=== PATIENT | female | born 1990 | race Caucasian/White ===

== ENCOUNTER 2017-02-18 10:28 | Inpatient (IN) | payer OTHER ==
[~2017-02-18] VITALS: Ht 170.2 cm; Wt 164.2 kg
[~2017-02-18 10:28] MED LIST: DELTASONE20 MG PO; GUAIFENESIN-COD10 ML PO; PROAIR HFA8.5 GM INH; ZOFRAN4 M2 PO
--- NOTE | 2017-02-18 10:39 | NUR ---
26 YEAR OLD FEMALE SENT TO ER BY HER PSYCHIATRIST DUE TO POSITIVE SI THOUGHTS. DENIES A PLAN AT THIS TIME AND STATES THAT SHE HAS A YOUNG SON AND COULD NEVER KILL HERSELF. ALSO COMPLAINS OF HALLUCINATIONS,STATES THAT SHE SEES THINGS BUT THAT SHE CAN'T EXPLAIN WHAT SHE IS SEEING. DENIES ETOH/DRUGS.
--- NOTE | 2017-02-18 10:42 | ED PSYCHIATRIC COMPLAINT ---
History of Present Illness General Chief Complaint: Psychiatric Related Complaint Stated Complaint: SENT BY PSYCHIATRIST FOR EVAL +SI,HALLUCINATIONS Source: patient Exam Limitations: no limitations Vital Signs & Intake/Output Vital Signs & Intake/Output Vital Signs Date Time Temp Pulse Resp B/P B/P Pulse O2 O2 Flow FiO2 Mean Ox Delivery Rate 02/19 0800 98.3 74 147/92 02/18 2244 97.1 84 18 130/78 96 Room Air 02/18 2111 97.5 84 18 128/72 97 Room Air 02/18 1815 98.6 83 18 138/78 97 Room Air 02/18 1437 96.7 86 18 103/54 96 Room Air 02/18 1154 98 Room Air ED Intake and Output 02/19 0000 02/18 1200 Intake Total Output Total Balance Patient 362 lb 362 lb Weight Allergies Coded Allergies: oxycodone (Intermediate, VOMITING 02/18/17) Triage Note: 26 YEAR OLD FEMALE SENT TO ER BY HER PSYCHIATRIST DUE TO POSITIVE SI THOUGHTS. DENIES A PLAN AT THIS TIME AND STATES THAT SHE HAS A YOUNG SON AND COULD NEVER KILL HERSELF. ALSO COMPLAINS OF HALLUCINATIONS,STATES THAT SHE SEES THINGS BUT THAT SHE CAN'T EXPLAIN WHAT SHE IS SEEING. DENIES ETOH/DRUGS. Triage Nurses Notes Reviewed? yes Onset: Gradual Duration: worse persistent since (2 weeks) Timing: recent history Severity: moderate : No Patient currently breastfeeds: No HPI: Patient is a 26-year-old female presenting to the emergency department with history of anxiety, depression and bipolar with chief complaint of suicidal ideation, worsening depression over the past 2 weeks. She reports that she is having auditory and visual hallucinations. She reports that the auditory hallucinations are people just telling her comments, she is unsure exactly what they're saying. She saying the visual hallucinations or just seeing people in different way. She reports that she is currently suicidal, no specific plan. She saw her therapist this morning and they recommended she come to the ER for evaluation due to suicidal ideation. Denies any drug use or alcohol use. Nothing seems to make her symptoms that are worse. She reports decreased by mouth intake. Denies any homicidal ideation. (DHRUV LUTZ,JODEE) Reconcile Medications Carbamazepine (Tegretol) 200 MG TABLET 1.5 TAB PO BID MENTAL HEALTH (Reported ) (LAURA DAVIS,RYAN) Past History Travel History Traveled to [place] past 21 day No Medical History Any Pertinent Medical History? see below for history Respiratory: asthma, CHRONIC BRONCHITIS Psychiatric: anxiety, bipolar disease, depression Endocrine: hyperthyroidism, PREDIABETES Surgical History Surgical History: non-contributory Psychosocial History What is your primary language Icelandic Tobacco Use: Current Daily Use Daily Tobacco Use Amount/Type: => 5 Cigarettes daily ETOH Use: denies use Illicit Drug Use: denies illicit drug use Family History Hx Contributory? No (JODEE ANDERS) Review of Systems Review of Systems Constitutional: Reports: no symptoms. Comments Review of systems: See HPI, All other systems negative. Constitutional, no chills fever or weight loss HEENT: No visual changes no sore throat no congestion Cardiovascular: No chest pain ,palpitation Skin, no jaundice no rashes Respiratory: No dyspnea cough sputum or hemoptysis GI: No nausea no vomiting : No dysuria No hematuria Muscle skeletal: no back pain, no neck pain, Neurologic: No numbness no confusion Psych: Positive STRESS positive anxiety, positive depression Heme/endocrine: No bruising no bleeding no polyuria or polydipsia Immunology: No splenectomy or history of AIDS (JODEE ANDERS) Physical Exam Physical Exam General Appearance: well developed/nourished, no apparent distress, alert, awake , TEARFUL Neurological/Psychiatric: oriented x 3 Comments: Well-developed well-nourished person in no acute distress HEENT: Pupils equally round and reactive to light and accommodation. Nose is atraumatic. Neck: Normal inspection Back: Nontender, Cardiovascular: Regular rate and rhythms no murmurs rubs or gallops, normal JVP Respiratory: Chest nontender. No respiratory distress.breath sounds clear to auscultation bilaterally Extremity: No edema Neuro: Alert oriented x3 Skin: No appreciable rash on exposed skin, skin is warm and dry. Psych: Mood depressed affect, tearful, memory and judgment is normal. SAD PERSONS SAD PERSONS Response Value Depression/Hopelessness? yes 2 Previous Attempts/Psych Care yes 1 Rational Thinking Loss? yes 2 Social Support? has support 0 Stated Future Intent? yes 2 Total 7 SAD PERSONS Done? yes (JODEE ANDERS) Progress Differential Diagnosis: MAJOR DEPRESSIVE DISORDER, MOOD DISORDER NOS, GENERALIZED ANXIETY DISORDER, POLYSUBSTANCE ABUSE. Plan of Care: Orders Procedure Date/time Status Regular Diet 02/19 B Active Vital Signs 02/19 2324 Active Inpt Psych Teach/Educate 02/19 2324 Active Nutritional Intake, Monitor 02/19 2324 Active Inpt Psych Auricular Acupunctu 02/19 2324 Active Admit to inpatient psych 02/18 1735 Active Add-on Test (ER Only) 02/18 1713 Active TEGRETOL LEVEL 02/18 1240 Complete Intake & Output 02/18 1154 Complete Current Medications Sig/Jerri Start time Last Medication Dose Stop Time Status Admin Escitalopram Oxalate 10 MG 0802/23 0800 UNVr (Lexapro) Melatonin 3 MG AT BEDTIME PRN 02/19 1145 UNVr (Melatonin) Escitalopram Oxalate 5 MG DAILY 02/19 1142 UNVr (Lexapro) 02/21 1001 Laboratory Tests 02/18/17 1240: Anion Gap 10, Estimated GFR > 60, BUN/Creatinine Ratio 14.3, Glucose 106 H, Calcium 8.3 L, Total Bilirubin 0.4, AST 18, ALT 33, Alkaline Phosphatase 62, Total Protein 6.8, Albumin 3.7, Globulin 3.1, Albumin/Globulin Ratio 1.2, TSH & T3 &Free T4 Intrp 1.990, RBC 5.06, MCV 83.8, MCH 28.4, RDW 13.9, MPV 8.6, Gran % 71.5, Lymphocytes % 20.1 L, Monocytes % 2.5, Eosinophils % 5.5 H, Basophils % 0.4, Absolute Granulocytes 5.7, Absolute Lymphocytes 1.6, Absolute Monocytes 0.2 , Absolute Eosinophils 0.4, Absolute Basophils 0, PUBS MCHC 33.9, Carbamazepine 6.6, Serum Alcohol < 10.0 Comments: PT WILL BE ADMITTED TO [facility]. (JODEE ANDERS) Departure Departure Time of Disposition: 1712 Disposition: STILL A PATIENT Condition: Stable Clinical Impression Primary Impression: Mood disorder Secondary Impressions: Major depressive disorder Qualifiers: Major depression recurrence: recurrent Active/Remission status: currently active Major depression episode severity: severe Psychotic features: with psychotic features Qualified Code: F33.3 - Major depressive disorder, recurrent, severe with psychotic symptoms Referrals: AGAPITO MADDOX DO (PCP/Family) Departure Forms: Customer Survey General Discharge Information Psych Admission Note Psychiatric Admission: I have seen and evaluated ERVIN BURT. I have also reviewed all the pertinent lab results and diagnostic results. ERVIN BURT will be admitted to our inpatient Psychiatric unit for treatment and care. Patient requiring admission for psychiatric evaluation and treatment. (DHRUV LUTZ,JODEE) PA/GREY GOODS MARKER Co-Sign Statement Statement: ED Attending supervision documentation- [] I saw and evaluated the patient. I have also reviewed all the pertinent lab results and diagnostic results. I agree with the findings and the plan of care as documented in the PA's/GREY GOODS MARKER's documentation. [X] I have reviewed the ED Record and agree with the PA's/GREY GOODS MARKER's documentation. [] Additions or exceptions (if any) to the PAs/GREY GOODS MARKER's note and plan are summarized below: [] (LAURA DAVIS,RYAN)
--- NOTE | 2017-02-18 10:50 | NUR ---
BOLIVAR ZAVALA AT THE BEDSIDE
--- NOTE | 2017-02-18 11:07 | NUR ---
Patient has one belongings bag locked in [facility] and her has taken home her valuables.
[2017-02-18] MEDS ORDERED: CLONAZEPAM0.5 M2 PO (11:11)
[2017-02-18] MEDS ORDERED: TEGRETOL200 M1 PO (11:11)
--- NOTE | 2017-02-18 11:53 | NUR ---
PT REMAINS CALM AND COOPERATIVE. BLOOD DRAW IN PROGRESS
--- NOTE | 2017-02-18 11:56 | NUR ---
LABS DRAWN AND SENT BY THIS MST, SST,LAV, PT A DIFFICULT STICK.
--- NOTE | 2017-02-18 12:11 | NUR ---
CBC CLOTTED PER LAB, NEED REDRAW.
--- NOTE | 2017-02-18 12:43 | NUR ---
THEATRICAL PERFORMER ANUPAM OVER TO RE DRAW BLOOD
[2017-02-18 12:47] LABS: ABSOLUTE BASOPHIL COUNT 0 /CUMM (0.0-0.2); ABSOLUTE EOSINOPHIL COUNT 0.4 /CUMM (0.0-0.7); ABSOLUTE GRANULOCYTE CT 5.7 /CUMM (1.4-6.5); ABSOLUTE LYMPH COUNT 1.6 /CUMM (1.2-3.4); ABSOLUTE MONOCYTE COUNT 0.2 /CUMM (0.10-0.60); BASOPHIL % 0.4 % (0.0-2.0); EOSINOPHIL % 5.5 % (0-5); GRANULOCYTE % 71.5 % (42.2-75.2); HEMATOCRIT 42.4 % (37-47); MEAN CORPUSCULAR HGB 28.4 PG (27.0-31.0); MEAN CORPUSCULAR HGB CONC 33.9 G/DL (33.0-37.0); MEAN CORPUSCULAR VOLUME 83.8 FL (81.0-99.0); MEAN PLATELET VOLUME 8.6 FL (7.4-10.4); PLATELET COUNT 239 /CUMM (130-400); RBC DISTRIBUTION WIDTH 13.9 % (11.5-14.5); RED BLOOD CELL CT 5.06 /CUMM (4.20-5.40)
--- NOTE | 2017-02-18 13:25 | NUR ---
PT RESTING IN HALLWAY STRETCHER WITH NO ADDITIONAL COMPLAINTS AT THIS TIME AWAITING ALL RESULTS AND THEN CRISIS EVAL
--- NOTE | 2017-02-18 14:07 | NUR ---
MOVED INTO ROOM 13. REMAINS PLEASANT AND COOPERATIVE WITH NO COMPLAINTS VOICED
--- NOTE | 2017-02-18 15:17 | NUR ---
REPORT GIVEN TO GUILLE PATEL
--- NOTE | 2017-02-18 15:49 | NUR ---
ASSUMED CARE AT THIS TIME , PT ALERT AND ORIENTED SITTING UP ON BED EATING HER DINNER. CRISIS AT BEDSIDE
--- NOTE | 2017-02-18 17:12 | ED PSYCH CRISIS CONSULTATION ---
Crisis Consult Basic Assessment Date of Consult: 02/18/17 Responsible Person/Accompanied By: Spouse, Kali Insurance Authorization: Insurance #1: Insurance name: [employer] C&A Phone number: Policy number: [id number] Group number: Authorization number: ED Provider: Patient's ED Provider: JODEE ANDERS Primary Care Physician: Patient's PCP: AGAPITO MADDOX DO PCP's Current Psychiatrist: Angélica Flor MD Chief Complaint: Psychiatric Related Complaint Patient's Quote: "I had a fight with my , I thought he was laughing at mg " Present Illness: 26 F presented to her psychiatrist, Dr. Angélica Flor, , today who after evaluation, found her to have stronger suicidal ideation and auditory hallucinations, and sent her to the ED. She was accompanied by her spouse, Kali, who decided to drive her to the ED, despite not having a entry level truck driver's license. She had had a fight with her spouse this morning, believing that he was laughing at her, when he was not. She reports she has had escalating suicidal ideation, without plan, in the last year. She reports that "it is more seeking relief than killing." She reports non -command AH, usually believing the person near her is talking or laughing about her. She reports VH sometimes, usually either seeing shadows, or "seeing people as someone else." Diagnosed with bipolar depression and anxiety, per her report, at age 14. Dr. Flor reports: Mood D/O NOS PTSD R/O borderline P.D. She has been treating the patient for several years, and reports that many medications have been tried, some with previous treaters, with the patient, all losing efficacy after a while, including Geodon, Abilify, Latuda, Zyprexa, Invega, risperidone, Cymbalta, Lamictal. The MD reports that the patient cannot tolerate SSRI, reason unclear, and the patient does not recognize any SSRI names. The patient reports that she had to stop one med after one day, after she developed very strong suicidal thoughts. She has never been on lithium. Current psychotropic medications, per med claim, and confirmed with the patient: Carbamazapine 300 mg PO 2X/day Clonazepam 0.5 mg #30 for 30 days filled 02/05/17, Dr. Flor, per CT SOLUTION COORDINATOR Aware report Previous history includes diagnosis of bipolar and anxiety, treated by Dr. Diana for many years, before he moved. She denies psychiatric hospitalization. She denies any suicide attempts. She denies any history of seizure. MSE: Alert and oriented. Calm, cooperative but tearful. She denies current suicidal ideation, but reports she had these feelings without plan earlier today , and reports they have been getting worse in the last year. Later, she changed this to state the these +SI feelings and hallucinations began when Dr. Flor increased the dosing of her carbamazapine to the current level. She denies current auditory or visual hallucinations, but had auditory hallucinations earlier today, as noted above. Visual hallucinations occur sometimes, and are described above. She endorses hopelessness and helplessness, but not worthlessness. She denies homicidal ideation, but reports that sometimes, she wants to punch people who are near her, even complete strangers. She cannot recall the last manic episode, but reports impulsive spending and Lotto gambling, even reaching the spending limit on her 's credit cards. He works only part-time, and this caused severe financial burden. She feels that she is not in her body when she feels stressed. Less frequently, she reports random derealization. Sleep is sometimes good, but then describes 5-6 hours and does not feel refreshed in the morning. she does not use sleep aids. She denies street drug use, and reports rare alcohol use. She does smoke 1/2 to 1 pack of cigarettes daily. For trauma history, please see PSHx below. PSHx: The patient lives at home with her 6 y.o. son, Jr. Kali and her spouse, Kali. She reports that her daughter in 2008 in the womb, and she carried the stillborn infant for 7 months. At the time of this , she had started [facility] IOP, but left on the first day, when she was told they wished to restart her medications, "I don't like pushy people." Her mother one week after her son was born. She works at [employer] part-time, and states that her hours have been cut back, because she has anxiety there and has had to leave work on numerous occasions. Her best friend in her sleep on . PFHx: Mother - anxiety, depression, alcohol abuse, and aunt abused benzodiazepines. Father - Bipolar, with schizophrenia, anxiety and depression in other members on that side. Patient's Address: [address] [place] [address] [address] [place] [address] Other Phone Number: Who Do You Live With? Family Family/Informants Interviewed: Spouse, Kali, interviewed, who seems ambivalent about his discharging to home vs. admission to inpatient psychiatry. Questionable judgement; he drove the patient to the ED, but is not licensed. Dr. Flor, psychiatrist: She has never seen the patient this suicidal, and feels stongly that she needs inpatient psych admission. Allergies - Coded Allergies: oxycodone (Intermediate, VOMITING 02/18/17) Current Medications - Scheduled Medications Carbamazepine (Tegretol) 200 MG TABLET 1.5 TAB PO BID MENTAL HEALTH #90 ( Reported) Entered as Reported by CHAIM EATON on 02/18/17 1111 Scheduled PRN Medications Clonazepam 0.5 MG TABLET 1 TAB PO BIDP PRN ANXIETY #30 (Reported) Entered as Reported by CHAIM EATON on 02/18/17 1111 Laboratory Results: Laboratory Tests 02/18/17 1240: Anion Gap 10, Estimated GFR > 60, BUN/Creatinine Ratio 14.3, Glucose 106 H, Calcium 8.3 L, Total Bilirubin 0.4, AST 18, ALT 33, Alkaline Phosphatase 62, Total Protein 6.8, Albumin 3.7, Globulin 3.1, Albumin/Globulin Ratio 1.2, TSH & T3 &Free T4 Intrp 1.990, RBC 5.06, MCV 83.8, MCH 28.4, RDW 13.9, MPV 8.6, Gran % 71.5, Lymphocytes % 20.1 L, Monocytes % 2.5, Eosinophils % 5.5 H, Basophils % 0.4, Absolute Granulocytes 5.7, Absolute Lymphocytes 1.6, Absolute Monocytes 0.2 , Absolute Eosinophils 0.4, Absolute Basophils 0, PUBS MCHC 33.9, Carbamazepine 6.6, Serum Alcohol < 10.0 02/18/17 1125: Urine Opiates Screen < 100.00, Methadone Screen < 40, Barbiturate Screen < 60, Ur Phencyclidine Scrn < 6.00, Amphetamines Screen < 100, U Benzodiazepines Scrn < 85, Urine Cocaine Screen < 50, Urine Cannabis Screen < 5.00, Urine Color STRAW , Urine Clarity CLEAR, Urine pH 7.0, Ur Specific Kerman 1.010, Urine Protein NEG, Urine Ketones NEG, Urine Nitrite NEG, Urine Bilirubin NEG, Urine Urobilinogen 0.2, Ur Leukocyte Esterase NEG, Ur Microscopic EXAM NOT REQUIRED, Urine Hemoglobin NEG, Urine Glucose NEG, Urine Test NEGATIVE Past History Past Medical History Respiratory: asthma, CHRONIC BRONCHITIS Psychiatric: anxiety, bipolar disease, depression Endocrine: hyperthyroidism, PREDIABETES Past Surgical History Surgical History: non-contributory Psychosocial History Strengths/Capabilities: Motivated for treatment, goal-oriented. Physical Limitations (Interventions): None Psychiatric Treatment History Psych Treatment Psychiatric Treatment Yes Inpatient Treatment No Outpatient Treatment Yes Location of Treatment Dr. Diana, and now Dr. Flor. Also, [facility] for one visi Reason for Treatment Patient report: Bipolar, anxiety. Dr. Flor: PTSD, borderline P.D., ?mood disorder. Dates of Treatment Currently in outpatient with . Treated since 14 y.o. 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 Substance Use/Abuse History Drug Use/Abuse Substances Used/Abused No (Denies) Substance Abuse Treatment Substance Abuse Treatment Past Substance Abuse [place] No (Denies) Inpatient Treatment No Outpatient Treatment No Current Mental Status Mental Status Orientation: Person, Place, Situation Affect: Flat, Sad Speech: WNL Neuro-vegetative: Anhedonia, Helpless, Sleep Disturbance Appearance Appearance- Dress/Hygiene: Hospital garb Behaviors Thought Process: Loose Association Thought Content: Confabulations, Delusions Memory: WNL (Denies, but inconsistencies) Insight: Poor SI/HI Risk Assessment Past Suicidal Ideation/Attempts Yes Current Suicidal Ideation/Att No Past Homicidal Ideation/Att: No Current Homicidal Ideation/Attempts No Degree of Intent: Recent thoughts, no plan Danger To: Self Gravely Disabled: Lack of Insight, Poor Judgment Risk Factors: high anxiety/distress Lethality Ratin PTSD Checklist PTSD Score: PTSD Score: Response Value Disturbing memories,thoughts,images of stressful experience? A little bit 2 Disturbing dreams of stressful experience from past? Not at all 1 Suddenly acting/feeling as if reliving stressful experience? Not at all 1 Unpleasant feeling when reminded of stressful experience? A little bit 2 Physical reactions when reminded of stressful experience? Not at all 1 Avoid thinking/talking of stressful exp. to avoid reactions? Not at all 1 Avoid activities/situations that remind of stressful exp.? Not at all 1 Trouble remembering important parts of stressful experience? Not at all 1 Loss of interest in things that you used to enjoy? A little bit 2 Feeling distant or cut off from other people? A little bit 2 Feeling emotionally numb/unable to love those close to you? A little bit 2 Feeling as if your future will somehow be cut short? Not at all 1 Trouble falling or staying asleep? A little bit 2 Feeling irritable or having angry outbursts? Moderately 3 Having difficulty concentrating? Not at all 1 Being super alert or watchful on guard? A little bit 2 Feeling jumpy or easily startled? Not at all 1 Total 26 ED Management Sitter: Yes Restraints: No DSM5/PS Stressors/Medical Prob Diagnosis' (DSM 5, Stressors, Medical): 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 Current GAF: 21 Departure Disposition Psych Medical Clearance Date: 02/18/17 Medically Cleared at: 1545 Time Started: 1545 Time Ended: 1615 Psychiatrist Consulted: Antwan Ferrer MD Date Disposition Established: 02/18/17 Time Disposition Established: 1630 Plan for Disposition - Modality: Inpatient Psychiatry Facility: [facility] Rationale for Disposition: Worsening suicidal ideation and auditory hallucinations Type of IP Admission: Voluntary Referrals AGAPITO MADDOX DO (PCP/Family)
--- NOTE | 2017-02-18 17:23 | NUR ---
PT REMAINS ALERT AND ORIENTED , PER CRISIS PT TO BE ADMITTED TO [facility]
--- NOTE | 2017-02-18 18:50 | NUR ---
PT REMAINS CALM AND COPERATIVE , RESTING ON BED WITH LIGHTS DIMMED, PT AWARE THAT SHE IS TO BE ADMITTED TO [facility]
--- NOTE | 2017-02-18 18:51 | IP CRISIS DIAG ASSESS PSYCH ---
Diagnostic Assessment Basic Assessment Insurance Authorization: Insurance #1: Insurance name: [employer]A Phone number: Policy number: [id number] Group number: Authorization number: [id number]; [id number] Primary Care Physician: Patient's PCP: AGAPITO MADDOX DO PCP's Patient's Quote: "I had a fight with my , I thought he was laughing at mg " Present Illness: 26 F presented to her psychiatrist, Dr. Angélica Flor, , today who after evaluation, found her to have stronger suicidal ideation and auditory hallucinations, and sent her to the ED. 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 She had had a fight with her spouse this morning, believing that he was laughing at her, when he was not. She reports she has had escalating suicidal ideation, without plan, in the last year. She reports that "it is more seeking relief than killing." She reports non -command AH, usually believing the person near her is talking or laughing about her. She reports VH sometimes, usually either seeing shadows, or "seeing people as someone else." Diagnosed with bipolar depression and anxiety, per her report, at age 14. Dr. Flor reports: Mood D/O NOS PTSD R/O borderline P.D. She has been treating the patient for several years, and reports that many medications have been tried, some with previous treaters, with the patient, all losing efficacy after a while, including Geodon, Abilify, Latuda, Zyprexa, Invega, risperidone, Cymbalta, Lamictal. The MD reports that the patient cannot tolerate SSRI, reason unclear, and the patient does not recognize any SSRI names. The patient reports that she had to stop one med after one day, after she developed very strong suicidal thoughts. She has never been on lithium. Current psychotropic medications, per med claim, and confirmed with the patient: Carbamazapine 300 mg PO 2X/day Clonazepam 0.5 mg #30 for 30 days filled 02/05/17, Dr. Flor, per [facility] report Previous history includes diagnosis of bipolar and anxiety, treated by Dr. Diana for many years, before he moved. She denies psychiatric hospitalization. She denies any suicide attempts. She denies any history of seizure. MSE: Alert and oriented. Calm, cooperative but tearful. She denies current suicidal ideation, but reports she had these feelings without plan earlier today , and reports they have been getting worse in the last year. Later, she changed this to state the these +SI feelings and hallucinations began when Dr. Flor increased the dosing of her carbamazapine to the current level. She denies current auditory or visual hallucinations, but had auditory hallucinations earlier today, as noted above. Visual hallucinations occur sometimes, and are described above. She endorses hopelessness and helplessness, but not worthlessness. She denies homicidal ideation, but reports that sometimes, she wants to punch people who are near her, even complete strangers. She cannot recall the last manic episode, but reports impulsive spending and Lotto gambling, even reaching the spending limit on her 's credit cards. He works only part-time, and this caused severe financial burden. She feels that she is not in her body when she feels stressed. Less frequently, she reports random derealization. Sleep is sometimes good, but then describes 5-6 hours and does not feel refreshed in the morning. she does not use sleep aids. She denies street drug use, and reports rare alcohol use. She does smoke 1/2 to 1 pack of cigarettes daily. For trauma history, please see PSHx below. PSHx: The patient lives at home with her 6 y.o. son, Jr. Kali and her spouse, Kali. She reports that her daughter in 2008 in the womb, and she carried the stillborn for 7 months. At the time of this , she had started [facility] IOP, but left on the first day, when she was told they wished to restart her medications, "I don't like pushy people." Her mother one week after her son was born. She works at [employer] part-time, and states that her hours have been cut back, because she has anxiety there and has had to leave work on numerous occasions. Her best friend in her sleep on . PFHx: Mother - anxiety, depression, alcohol abuse, and aunt abused benzodiazepines. Father - Bipolar, with schizophrenia, anxiety and depression in other members on that side. Patient's Address: [address] [place] [address] [address] [place] [address] Other Phone Number: Who Do You Live With? Family (Spouse and 6 y.o. son) Feel Safe Where You Live? Yes Feel Safe in Your Relationship Yes Marital Status: Do You Have Children? Yes Ages? 6 Primary Language? Swedish Family/Informants Interviewed: Spouse, Kali, interviewed, who seems ambivalent about his discharging to home vs. admission to inpatient psychiatry. Questionable judgement; he drove the patient to the ED, but is not licensed. Dr. Flor, psychiatrist: She has never seen the patient this suicidal, and feels stongly that she needs inpatient psych admission. Allergies - Coded Allergies: oxycodone (Intermediate, VOMITING 02/18/17) Current Medications - Scheduled Medications Carbamazepine (Tegretol) 200 MG TABLET 1.5 TAB PO BID MENTAL HEALTH #90 ( Reported) Entered as Reported by CHAIM EATON on 02/18/17 1111 Scheduled PRN Medications Clonazepam 0.5 MG TABLET 1 TAB PO BIDP PRN ANXIETY #30 (Reported) Entered as Reported by CHAIM EATON on 02/18/17 1111 Consequences of Psych Med Use: Patient reports that SI and AH worsened when carbamazepine dose increased, but gave a possibly conflicting story earlier, when she stated that SI became worse about one year ago. Lab Results: Laboratory Tests 02/18/17 1240: Anion Gap 10, Estimated GFR > 60, BUN/Creatinine Ratio 14.3, Glucose 106 H, Calcium 8.3 L, Total Bilirubin 0.4, AST 18, ALT 33, Alkaline Phosphatase 62, Total Protein 6.8, Albumin 3.7, Globulin 3.1, Albumin/Globulin Ratio 1.2, TSH & T3 &Free T4 Intrp 1.990, RBC 5.06, MCV 83.8, MCH 28.4, RDW 13.9, MPV 8.6, Gran % 71.5, Lymphocytes % 20.1 L, Monocytes % 2.5, Eosinophils % 5.5 H, Basophils % 0.4, Absolute Granulocytes 5.7, Absolute Lymphocytes 1.6, Absolute Monocytes 0.2 , Absolute Eosinophils 0.4, Absolute Basophils 0, PUBS MCHC 33.9, Carbamazepine 6.6, Serum Alcohol < 10.0 02/18/17 1125: Urine Opiates Screen < 100.00, Methadone Screen < 40, Barbiturate Screen < 60, Ur Phencyclidine Scrn < 6.00, Amphetamines Screen < 100, U Benzodiazepines Scrn < 85, Urine Cocaine Screen < 50, Urine Cannabis Screen < 5.00, Urine Color STRAW , Urine Clarity CLEAR, Urine pH 7.0, Ur Specific [place] 1.010, Urine Protein NEG, Urine Ketones NEG, Urine Nitrite NEG, Urine Bilirubin NEG, Urine Urobilinogen 0.2, Ur Leukocyte Esterase NEG, Ur Microscopic EXAM NOT REQUIRED, Urine Hemoglobin NEG, Urine Glucose NEG, Urine Test NEGATIVE Toxicology Screen Completed? Yes Results: negative Past History Past Medical History Medical History: Asthma, Psychiatric history, Hyperthyroidism, Chronic bronchitis, pre-diabetes Past Surgical History Surgical History non-contributory Abuse/Trauma History Trauma History/Current Trauma: Loss of child in womb, of mother and best friend. PTSD screen 26 today. Victim or Perpretator? victim Patient's Age at Time of Trauma: 18 History of Trauma/Abuse Treatment? Yes Abuse/Trauma Treatment: Not evaluated Legal History Current Legal Status: none Have you ever been arrested? No Psychosocial History Strengths/Capabilities: Motivated for treatment, goal-oriented. Physical Limitations (Interventions): None Psychiatric Treatment History Psych Treatment Psychiatric Treatment Yes Inpatient Treatment No Outpatient Treatment Yes Location of Treatment Dr. Diana, and now Dr. Flor. Also, [facility] for one visi Reason for Treatment Patient report: Bipolar, anxiety. Dr. Flor: PTSD, borderline P.D., ?mood disorder. Dates of Treatment Currently in outpatient with . Treated since 14 y.o. 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 Risk Factors: high anxiety/distress Substance Use/Abuse History Drug Use/Abuse minimum 12mo Hx Substances Used/Abused No (Denies) Substance Abuse Treatment Substance Abuse Treatment Past Substance Abuse [place] No (Denies) Inpatient Treatment No Outpatient Treatment No Education History Highest Level of Education: high school/GED Preferred Learning Style: experiential Current Mental Status Mental Status Orientation: Person, Place, Situation Affect: Flat, Sad Speech: WNL Neuro-vegetative: Anhedonia, Helpless, Sleep Disturbance Appearance Appearance- Dress/Hygiene: Hospital garb Behaviors Thought Process: Loose Association Thought Content: Confabulations, Delusions Memory: WNL (Denies, but inconsistencies) Insight: Poor SI/HI Risk Assessment - Minimum 6mo History- Past Suicidal Ideation/Attempts Yes Current Suicidal Ideation/Att No Past Homicidal Ideation/Att: No Current Homicidal Ideation/Attempts No Degree of Intent: Recent thoughts, no plan Danger To: Self Gravely Disabled: Lack of Insight, Poor Judgment Risk Factors: high anxiety/distress Lethality Ratin Needs/Init TX Plan/Goals: TBD AUDIT-C Questionnaire: AUDIT-C Questionnaire: Response Value ETOH use in the past year Monthly or less 1 # drinks typical/day 1 or 2 0 6 or > drinks per occasion Less than monthly 1 Total 2 DSM5/PS Stressors/Medical Prob Diagnosis' (DSM 5, Stressors, Medical): 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 Current GAF: 21 Comments: Carbamazapine level today 6.6.
--- NOTE | 2017-02-18 19:30 | NUR ---
PT RESTING COMFORTABLY. CALM AND COOPERATIVE. FRIEND AT BEDSIDE FOR SUPPORT.
--- NOTE | 2017-02-18 21:10 | NUR ---
PT MEDICATED WITH TEGRETOL PER EMAR. AWAITING ADMISSION TO [facility].
--- NOTE | 2017-02-18 22:47 | NUR ---
REPORT GIVEN TO GUILLE DOMINGUEZ CPS
--- NOTE | 2017-02-19 01:40 | NUR ---
Patient admitted from ED. Patient was very tearful upon arrival on the floor. Patient participated in assessment, alert and oriented to person, place, time and situation. Patient currently denies pain. Reports anxiety level is high re: not seeing her 6 y/o son jayjay. Able to orient patient to unit visiting hours and times phone is available. Patient became tearful again when discussing family history of mental health. Patient speech clear and coherent. Patient report chronic broncitis. Reports dizziness from medication at times. Declined assistive walking device to prevent falls. Patient contracted for safety and reports would "never" do anything because she has a 6 year old son. Patient does report VH reports seeing shadows of people known to her, non command. Looking forward to asskam eFrnandez with mental health.
[2017-02-19 08:00] VITALS: BP 147/92
--- NOTE | 2017-02-19 11:43 | CPS MD/APRN INITIAL ASSE PSYCH ---
Psychiatric Admission [employer] Operator's Note Reviewed: Yes Patient Seen and Examined: Yes Identifying Information: 26yoF with hx of Bipolar disorder, unspecified mood disorder Chief Complaint: "today is better" Reaction to Hospitalization: positive History of Present Illness Onset of Illness: at 14yo Circumstances Leading to Admission: worsening depression Problem(s) Justifying Need for Admission: +SI and +AVHs Other HPI: Pt notes taht "today is better" and feels that AVHs have resolved and less SI. She attributes this to being off of the tegretol. She notes that main carry all driver of depression is "recurring memories" about losses she has had, specifically her daughter who was still born in 2008 at 30wks, her mother, and a close cousin. She feels that moods shift rapidly throughout the day "sad to happy" or "angry to happy." Last noted "manic" episode was at 17yo when was "throwing stuff at my sister." She was very angry throughout teens. Denies mary eunice or hypomania. Denies drugs or alcohol use. Noted some AVHs that were uncharacteristic, now resolved. Denies SI while here. Denies psychotic or trauma-related sx. Past Psychiatric History Past Diagnosis(es)- if any: Bipolar disorder Nicotine dependence Past Precipitating Factors- if any: grief, losses - Include inpatient and outpatient treatment Treatment History: Pt psych treatment began at 14yo when very irritable. Noted to be dx at 17yo with bipolar disorder in the setting of marked irritability. No hx of mary eunice or hypomania recounted. Life-long struggle with depression and anxiety. Worsened after stillborn child in 2008. Meds trials: Wellbutrin- made more anxious, didn't work Mirtazapine Depakote Trileptal Latuda- increased SI hydroxyazine Abilify- made worse Geodon- was working then stopped taking then started again and did not work BDZs- klonopin, ativan, xanax Has never tried- lexapro, prozac, paxil, lithium, buspar, seroquel, zyprexa, lamictal. Sees [facility], ?Dr. 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 Isolation History: Standard Surgical History Surgical History: non-contributory Psychiatric Family/Social Hx Family History Psychiatric Illness: great aunt with bipolar disorder on lithium uncle with anx and depression on lexapro Substance Use: denied Suicides: denied Social History Living Situation: Lives with and 5yo son Significant Relationships (family/friends): very supportive Education: GED 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 - #1 Recognizing dangerous situations. - #2 Coping Skills. - #3 Basic information about quitting. Status of Tobacco Cessation Counseling: #1, #2 AND #3 Completed Cessation Med Status: Nicotine Patch Ordered Alcohol Screening - ETOH screen POS if BAL >=80 or Audit-C>= M4/F3 Audit-C Score from Diag Assess: 2 Blood Alcohol Level: Laboratory Tests 02/18 1240 Toxicology Serum Alcohol (<10 MG/DL) < 10.0 Alcohol Use Screening Results: Pos per Audit C &/or BAL - If ETOH counseling indicated - the following topics are required. - #1 Express concern about the patient's - drinking at unhealthy levels, include informing - of national norms for moderate drinking: - men <= 14 drinks/week, max 4 drinks/occasion - women <= 7 drinks/week, max 3 drinks/occasion - #2 Providing feedback, including linking alcohol to - negative physical effects (liver injury, hypertension) - negative emotional effects (relationship problems and - depression) - negative occupational consequences (reduced work - performance) - #3 Advising the patient to abstain from alcohol or - to drink below national norms for moderate drinking - (as listed above). Status of ETOH Use Counseling: #1, #2 AND #3 Completed. Metabolic Screening - Screen if on a Neuroleptic Medication - Metabolic screening should include: - Blood Pressure, BMI, Glucose or Hgb A1c, & a - Lipid profile from within the past 365 days. Metabolic Screening () Not Applicable, patient not on a neuroleptic. OR () Patient on a neuroleptic(s) . Enter below results for Glucose or Hemoglobin A1C, and lipid panel if obtained during the last 365 days. BMI: 56.700 Blood Pressure: 147/92 Laboratory Results (If applicable): Laboratory Tests 02/18 02/18 1240 1125 Chemistry Sodium (137 - 145 mmol/L) 139 Potassium (3.5 - 5.1 mmol/L) 4.5 Chloride (98 - 107 mmol/L) 105 Carbon Dioxide (22 - 30 mmol/L) 24 Anion Gap (5 - 16) 10 BUN (7 - 17 mg/dL) 10 Creatinine (0.5 - 1.0 mg/dL) 0.7 Estimated GFR (>60 ml/min) > 60 BUN/Creatinine Ratio (7 - 25 %) 14.3 Glucose (65 - 99 mg/dL) 106 H Calcium (8.4 - 10.2 mg/dL) 8.3 L Total Bilirubin (0.2 - 1.3 mg/dL) 0.4 AST (14 - 36 U/L) 18 ALT (9 - 52 U/L) 33 Alkaline Phosphatase (<127 U/L) 62 Total Protein (6.3 - 8.2 g/dL) 6.8 Albumin (3.5 - 5.0 g/dL) 3.7 Globulin (1.9 - 4.2 gm/dL) 3.1 Albumin/Globulin Ratio (1.1 - 2.2 %) 1.2 TSH &T3 &Free T4 Intrp (0.270 - 4.20 uIU/mL) 1.990 Hematology WBC (4.8 - 10.8 /CUMM) 8.0 RBC (4.20 - 5.40 /CUMM) 5.06 Hgb (12.0 - 16.0 G/DL) 14.4 Hct (37 - 47 %) 42.4 MCV (81.0 - 99.0 FL) 83.8 MCH (27.0 - 31.0 PG) 28.4 RDW (11.5 - 14.5 %) 13.9 Plt Count (130 - 400 /CUMM) 239 MPV (7.4 - 10.4 FL) 8.6 Gran % (42.2 - 75.2 %) 71.5 Lymphocytes % (20.5 - 51.1 %) 20.1 L Monocytes % (1.7 - 9.3 %) 2.5 Eosinophils % (0 - 5 %) 5.5 H Basophils % (0.0 - 2.0 %) 0.4 Absolute Granulocytes (1.4 - 6.5 /CUMM) 5.7 Absolute Lymphocytes (1.2 - 3.4 /CUMM) 1.6 Absolute Monocytes (0.10 - 0.60 /CUMM) 0.2 Absolute Eosinophils (0.0 - 0.7 /CUMM) 0.4 Absolute Basophils (0.0 - 0.2 /CUMM) 0 PUBS MCHC (33.0 - 37.0 G/DL) 33.9 Toxicology Urine Opiates Screen (>2000 NG/ML) < 100.00 Methadone Screen (>300 NG/ML) < 40 Barbiturate Screen (>200 NG/ML) < 60 Carbamazepine (4.0 - 12.0 ug/mL) 6.6 Ur Phencyclidine Scrn (>25 NG/ML) < 6.00 Amphetamines Screen (>1000 NG/ML) < 100 U Benzodiazepines Scrn (>200 NG/ML) < 85 Urine Cocaine Screen (>300 NG/ML) < 50 Urine Cannabis Screen (>50 NG/ML) < 5.00 Serum Alcohol (<10 MG/DL) < 10.0 Urines Urine Color (YEL,AMB,STR) STRAW Urine Clarity (CLEAR) CLEAR Urine pH (5.0 - 8.0) 7.0 Ur Specific [place] (1.001 - 1.035) 1.010 Urine Protein (NEG,<30 MG/DL) NEG Urine Ketones (NEG) NEG Urine Nitrite (NEG) NEG Urine Bilirubin (NEG) NEG Urine Urobilinogen (0.1 - 1.0 EU/dl) 0.2 Ur Leukocyte Esterase (NEG) NEG Ur Microscopic EXAM NOT REQUIRED Urine Hemoglobin (NEG) NEG Urine Glucose (N MG/DL) NEG Urine Test NEGATIVE Exam and Plan Mental Status Examination Ambulation Status: Freely w/o difficulty Appearance: older than stated age, obese Attitude towards examiner: cooperative Psychomotor activity: no psychomotor agitation or retardation noted Behavior: cooperative, pleasant Quality of speech: low volume, nl rate, nl prosody Affect: tearful, depressed, sad, non-labile, appropriate Mood: "today is better" Suicidal Ideation: denied Homicidal Ideation: denied Hallucinations: resolved, +one day ago Paranoid/Delusional Material: denied +one day ago Difficulties with thought organization: none noted, linear and goal directed Insight: good Judgment: fair Orientation: a.o X4 Cognition: grossly intact Memory Function: grossly intact Estimate of intellectual functioning: average Assets/Strengths Patient Identified Assets/Strengths: has support, wants help Impression/Plan Impression and Plan: Pt with hx of Bipolar disorder dx in teens 2/2 marked irritabilty. No evidence thus far that pt ever had eunice or hypomanic episode. Mood episodes from teens could have been 2/2 depression or DMDD. In addition, underlying personality organization may lead to this patient being more vulnerable to irritability and lashing out in periods of psychological stress. At this time, most pressing sx are of depression. - Include all active medical diagnosis that require tx DSM 5 Diagnosis(es): Unspecified Mood Disorder Complex bereavement - Initial Tx Plan for Active Psych & Medical Conditions Treatment Plan: - Discontinue tegretol as unclear indication for mood stabilizer and risk of worsening obesity - Start lexapro 5mg x3d then increase to 10mg daily - Pt may benefit from mood stablizer such as lamictal if mood lability noted - Would benefit most from psychotherapy as outpatient - Need family meeting and collateral from outpatient provider. - Encouarge intergration into the milieu - Factors that would help patient function - in a less restrictive setting. Factors: increased support
[2017-02-19 12:06] VITALS: BP 147/71
--- NOTE | 2017-02-19 13:27 | NUR ---
Rebecca was visible on the unit throughout the shift. Denies SH/HI/SI. Very polite abd engagable in conversation. visted after lunch. Angie started, she said it worked well for her uncle.
[2017-02-19 15:52] VITALS: BP 147/74
[2017-02-19 19:56] VITALS: BP 149/83
--- NOTE | 2017-02-19 20:28 | History & Physical ---
General Information and HPI History of Present Illness: 26F PMH pre-diabetes, hypothyroidism, anxiety, depression admitted to [facility] with anxiety and depression. She has no physical symptoms and feels overall well, and just wants treatment for her anxiety and depression. Refuses Synthroid as she experienced ill effects, and not having any symptoms of hypothyroidism. Refusing to check TSH. No other complaints. 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 EENTM: Reports: no symptoms. Cardiovascular: Reports: no symptoms. Respiratory: Reports: no symptoms. GI: Reports: no symptoms. Genitourinary: Reports: no symptoms. Musculoskeletal: Reports: no symptoms. Skin: Reports: no symptoms. Neurological/Psychological: Reports: no symptoms. Hematologic/Endocrine: Reports: no symptoms. Immunologic/Allergic: Reports: no symptoms. Exam & Diagnostic Data Last 24 Hrs of Vital Signs/I&O Vital Signs Date Time Temp Pulse Resp B/P B/P Pulse O2 O2 Flow FiO2 Mean Ox Delivery Rate 02/20 1956 98.4 82 149/83 02/19 1552 69 147/74 02/19 1206 70 147/71 02/19 0800 98.3 74 147/92 02/18 2244 97.1 84 18 130/78 96 Room Air 02/18 2111 97.5 84 18 128/72 97 Room Air Intake & Output 02/19 1600 02/19 0800 02/19 0000 Intake Total Output Total Balance Patient 164.2 kg Weight Physical Exam General Appearance Alert, Oriented X3, No Acute Distress Skin No Rashes HEENT Atraumatic Neck Supple Cardiovascular Regular Rate Lungs Normal Air Movement Abdomen Soft Neurological Exam Findings: Normal Gait, Normal Speech Cranial Nerves II through XII: Grossly normal Extremities No Edema Vascular Normal Pulses Assessment/Plan Assessment: 26F PMH pre-DM, hypothyroidism, anxiety, depression admitted with [facility] with anxiety and depression and no acute medical issues. As Ranked By This Provider Problem List: 1. Anxiety 2. Morbid obesity 3. Major depressive disorder Qualifiers Major depression recurrence: recurrent Active/Remission status: currently active Major depression episode severity: severe Psychotic features: with psychotic features Qualified Code: F33.3 - Major depressive disorder, recurrent, severe with psychotic symptoms Miscellaneous Miscellaneous Documentation Attending Case Discussed With: LIZZIE BARRON MD Primary Care Physician: AGAPITO MADDOX DO Patient sees these Specialists None Level of Patient Care: [facility]
--- NOTE | 2017-02-19 21:24 | NUR ---
isolative subdued affect. Denied thoughts of self harm when asked. cooperative with staff
--- NOTE | 2017-02-20 05:59 | NUR ---
PT IN BED EARLY. PT SLEPT.
[2017-02-20 08:10] VITALS: BP 142/82
--- NOTE | 2017-02-20 12:01 | CP SOUTH PROGRESS NOTE PSYCH ---
Psych (Inpt) Progress Note Progress Note Include the following elements, when applicable: Involvement in the active treatment of the patient with behavioral observations of the patient and the patient's response to the treatment. Review of the ongoing treatment process in the context of the treatment plan. Indication of how multi-disciplinary staff members are carrying out the treatment plan. Plans for future interventions and recommendations for revision of the treatment plan. Liaison with other physicians/providers. Pt notes that she is "very good" today. Feels better overall though became tearful speaking about her son. She does not want him visit to "see her in this place." Has menstrual cramps. Denies SI or HI. Denies AVHs. Current Medications Sig/Jerri Start time Last Medication Dose Route Stop Time Status Admin Escitalopram Oxalate 10 MG 02/23 08 DC PO Escitalopram Oxalate 10 MG 02/22 0800 AC PO Escitalopram Oxalate 5 MG DAILY 02/19 1142 AC 02/20 PO 02/21 1001 0852 Ibuprofen 600 MG Q6P PRN 02/20 1100 AC PO Melatonin 3 MG AT BEDTIME PRN 02/19 1145 AC PO Nicotine 2 MG Q2P PRN 02/19 1200 AC PO Nicotine 7 MG DAILY 02/19 1153 AC TOP Laboratory Tests 02/18 02/18 1240 1125 Chemistry Sodium (137 - 145 mmol/L) 139 Potassium (3.5 - 5.1 mmol/L) 4.5 Chloride (98 - 107 mmol/L) 105 Carbon Dioxide (22 - 30 mmol/L) 24 Anion Gap (5 - 16) 10 BUN (7 - 17 mg/dL) 10 Creatinine (0.5 - 1.0 mg/dL) 0.7 Estimated GFR (>60 ml/min) > 60 BUN/Creatinine Ratio (7 - 25 %) 14.3 Glucose (65 - 99 mg/dL) 106 H Calcium (8.4 - 10.2 mg/dL) 8.3 L Total Bilirubin (0.2 - 1.3 mg/dL) 0.4 AST (14 - 36 U/L) 18 ALT (9 - 52 U/L) 33 Alkaline Phosphatase (<127 U/L) 62 Total Protein (6.3 - 8.2 g/dL) 6.8 Albumin (3.5 - 5.0 g/dL) 3.7 Globulin (1.9 - 4.2 gm/dL) 3.1 Albumin/Globulin Ratio (1.1 - 2.2 %) 1.2 TSH &T3 &Free T4 Intrp (0.270 - 4.20 uIU/mL) 1.990 Hematology WBC (4.8 - 10.8 /CUMM) 8.0 RBC (4.20 - 5.40 /CUMM) 5.06 Hgb (12.0 - 16.0 G/DL) 14.4 Hct (37 - 47 %) 42.4 MCV (81.0 - 99.0 FL) 83.8 MCH (27.0 - 31.0 PG) 28.4 RDW (11.5 - 14.5 %) 13.9 Plt Count (130 - 400 /CUMM) 239 MPV (7.4 - 10.4 FL) 8.6 Gran % (42.2 - 75.2 %) 71.5 Lymphocytes % (20.5 - 51.1 %) 20.1 L Monocytes % (1.7 - 9.3 %) 2.5 Eosinophils % (0 - 5 %) 5.5 H Basophils % (0.0 - 2.0 %) 0.4 Absolute Granulocytes (1.4 - 6.5 /CUMM) 5.7 Absolute Lymphocytes (1.2 - 3.4 /CUMM) 1.6 Absolute Monocytes (0.10 - 0.60 /CUMM) 0.2 Absolute Eosinophils (0.0 - 0.7 /CUMM) 0.4 Absolute Basophils (0.0 - 0.2 /CUMM) 0 PUBS MCHC (33.0 - 37.0 G/DL) 33.9 Toxicology Urine Opiates Screen (>2000 NG/ML) < 100.00 Methadone Screen (>300 NG/ML) < 40 Barbiturate Screen (>200 NG/ML) < 60 Carbamazepine (4.0 - 12.0 ug/mL) 6.6 Ur Phencyclidine Scrn (>25 NG/ML) < 6.00 Amphetamines Screen (>1000 NG/ML) < 100 U Benzodiazepines Scrn (>200 NG/ML) < 85 Urine Cocaine Screen (>300 NG/ML) < 50 Urine Cannabis Screen (>50 NG/ML) < 5.00 Serum Alcohol (<10 MG/DL) < 10.0 Urines Urine Color (YEL,AMB,STR) STRAW Urine Clarity (CLEAR) CLEAR Urine pH (5.0 - 8.0) 7.0 Ur Specific Needles (1.001 - 1.035) 1.010 Urine Protein (NEG,<30 MG/DL) NEG Urine Ketones (NEG) NEG Urine Nitrite (NEG) NEG Urine Bilirubin (NEG) NEG Urine Urobilinogen (0.1 - 1.0 EU/dl) 0.2 Ur Leukocyte Esterase (NEG) NEG Ur Microscopic EXAM NOT REQUIRED Urine Hemoglobin (NEG) NEG Urine Glucose (N MG/DL) NEG Urine Test NEGATIVE Vital Signs Date Time Temp Pulse Resp B/P B/P Pulse O2 O2 Flow FiO2 Mean Ox Delivery Rate 02/20 0810 97.9 63 142/82 02/19 1956 98.4 82 149/83 02/19 1552 69 147/74 05 1206 70 147/71 MSE Appears as stated age. Cooperative behavior, good, appropriate eye contact. Nl speech rate and prosody. No psychomotor retardation or agitation. Mood better Affect irritable, depressed, constricted, appropriate, non-liable. Linear and goal directed thought process. Denies SI or HI. Does not appear to be responding to internal stimuli. Denies AVHs, paranoia, or delusions. I/J: limited A/P: Pt with hx of Bipolar disorder dx in teens 2/2 marked irritabilty. No evidence thus far that pt ever had eunice or hypomanic episode. Mood episodes from teens could have been 2/2 depression or DMDD. In addition, underlying personality organization may lead to this patient being more vulnerable to irritability and lashing out in periods of psychological stress. At this time, most pressing sx are of depression. - Discontinued tegretol as unclear indication for mood stabilizer and risk of worsening obesity - Cont lexapro 5mg x2d then increase to 10mg daily - Mortin PRN for menstrual cramps - Pt may benefit from mood stablizer such as lamictal if mood lability noted - Would benefit most from psychotherapy as outpatient - Need family meeting and collateral from outpatient provider. - Encouarge intergration into the milieu
[2017-02-20 12:21] VITALS: BP 132/82
--- NOTE | 2017-02-20 13:49 | NUR ---
PT IS COMPLIANT AND COOPERATIVE. MOOD IS STABLE WITH A CONSTRICTED AFFECT. PT TEARFUL AT TIMES WHEN TALKING ABOUT HER ANXIETY. PT DENIES SI AT THIS TIME, NO C/O. NO PARANOID THOUGHT CONTENT NOTED. PT IS PRESENT IN THE COMMUNITY AND INTERACTING WELL WITH PEERS AND STAFF. PT IS ATTENDING GROUPS. VITALS ARE STABLE, APPETITE IS GOOD.
[2017-02-20 16:08] VITALS: BP 142/92
[2017-02-20 19:53] VITALS: BP 149/93
--- NOTE | 2017-02-20 22:26 | NUR ---
PT IS CALM, COOPERATIVE WITH STAFF AND PEERS, AND COMPLIANT WITH UNIT RULES. PT IS OFTEN IN [place], INTERACTING WELL WITH OTHERS. MOOD IS ATABLE, AFFECT APPEARS FULL RANGE, COMMUNICATION IS ORGANIZED AND APPEARS NORMAL IN ALL RESPECTS, AND APPETITE IS NORMAL. PT DENIES SI AT THIS TIME.
--- NOTE | 2017-02-21 05:19 | NUR ---
PT MORE VISIBLE, SOCIAL. PT SLEPT.
[2017-02-21 07:59] VITALS: BP 111/64
--- NOTE | 2017-02-21 10:36 | SOCIAL WORKER SOCIAL HX PSYCH ---
Social History Basic Assessment Insurance Authorization: Insurance #1: Insurance name: [employer] Phone number: Policy number: [id number] Group number: Authorization number: Curr Source of Income/Entitlements: employment Primary Care Physician: Patient's PCP: AGAPITO MADDOX DO PCP's Present Problem: 26 F presented to her psychiatrist, Dr. Angélica Flor, , today who after evaluation, found her to have stronger suicidal ideation and auditory hallucinations, and sent her to the ED. 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 She had had a fight with her spouse this morning, believing that he was laughing at her, when he was not. She reports she has had escalating suicidal ideation, without plan, in the last year. She reports that "it is more seeking relief than killing." She reports non -command AH, usually believing the person near her is talking or laughing about her. She reports VH sometimes, usually either seeing shadows, or "seeing people as someone else." Diagnosed with bipolar depression and anxiety, per her report, at age 14. Dr. Flor reports: Mood D/O NOS PTSD R/O borderline P.D. She has been treating the patient for several years, and reports that many medications have been tried, some with previous treaters, with the patient, all losing efficacy after a while, including Geodon, Abilify, Latuda, Zyprexa, Invega, risperidone, Cymbalta, Lamictal. The MD reports that the patient cannot tolerate SSRI, reason unclear, and the patient does not recognize any SSRI names. The patient reports that she had to stop one med after one day, after she developed very strong suicidal thoughts. She has never been on lithium. Current psychotropic medications, per med claim, and confirmed with the patient: Carbamazapine 300 mg PO 2X/day Clonazepam 0.5 mg #30 for 30 days filled 02/05/17, Dr. Flor, per [facility] COMMUN[facility] MEDIA PROFESSOR Aware report Previous history includes diagnosis of bipolar and anxiety, treated by Dr. Diana for many years, before he moved. She denies psychiatric hospitalization. She denies any suicide attempts. She denies any history of seizure. MSE: Alert and oriented. Calm, cooperative but tearful. She denies current suicidal ideation, but reports she had these feelings without plan earlier today , and reports they have been getting worse in the last year. Later, she changed this to state the these +SI feelings and hallucinations began when Dr. Flor increased the dosing of her carbamazapine to the current level. She denies current auditory or visual hallucinations, but had auditory hallucinations earlier today, as noted above. Visual hallucinations occur sometimes, and are described above. She endorses hopelessness and helplessness, but not worthlessness. She denies homicidal ideation, but reports that sometimes, she wants to punch people who are near her, even complete strangers. She cannot recall the last manic episode, but reports impulsive spending and Lotto gambling, even reaching the spending limit on her 's credit cards. He works only part-time, and this caused severe financial burden. She feels that she is not in her body when she feels stressed. Less frequently, she reports random derealization. Sleep is sometimes good, but then describes 5-6 hours and does not feel refreshed in the morning. she does not use sleep aids. She denies street drug use, and reports rare alcohol use. She does smoke 1/2 to 1 pack of cigarettes daily. For trauma history, please see PSHx below. PSHx: The patient lives at home with her 6 y.o. son, Jr. Kali and her spouse, Kali. She reports that her daughter in 2008 in the womb, and she carried the stillborn for 7 months. At the time of this , she had started [facility] IOP, but left on the first day, when she was told they wished to restart her medications, "I don't like pushy people." Her mother one week after her son was born. She works at [employer] part-time, and states that her hours have been cut back, because she has anxiety there and has had to leave work on numerous occasions. Her best friend in her sleep on . PFHx: Mother - anxiety, depression, alcohol abuse, and aunt abused benzodiazepines. Father - Bipolar, with schizophrenia, anxiety and depression in other members on that side. ROSALINE LOMBARDI SALESPERSON WOMEN'S DRESSES> 02/18/17 Social work met with pt this morning and pt presents in good spirits. Pt smiles and expressed that she feels so much better due to the medication change. "I have not felt this way since i was a child. I feel so much better. Even my son told me how much better I seem." Pt expresses that she feels ready to be discharged, but would like to be referred to a new Psychiatrist prior to discharge. pt explains that she no longer wants to return to tx with Dr. Ruelas as she does not like the way Dr. Ruelas addressed things and made her come to the hospital. Primary Language? Swedish Language(s) Spoken At Home: Swedish Living Situation Rents or Owns Home? owns Residential Care/Treatment Fac lives with and son Feel Safe Where You Are Living Yes Feel Safe in Relationships? 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 We were all very close and supportive of one another DCF Involvement? No Mother's Age (Current/): 53 Relationship w/Mother: Mother 5 years ago 1 week after pt gave to her son. Pt says she was very close with her mom and had a great relationship Father's Age (Current/): 64 Relationship w/Father: very close and supportive Any Sibling(s)? Yes Sibling's Gender(s)/Age(s): male Sibling 1:, male Sibling 2:, female Sibling 3: Relationship w/Sibling(s): very close and supportive Relationship w/Friends: pt says she has many cloase supportive friends Family Psych/Sub Abuse/Add Hx: Pt identified a family hx of Amxiety, Depression, Bipolar and possibly schizophrenia Number of Pregnancies: 2 Number of Miscarriages: 1 (still born) Number of Abortions: 0 Abuse/Trauma History Trauma History/Current Trauma: Loss of child in womb, of mother and best friend. PTSD screen 26 today. Victim or Perpretator? victim Patient's Age at Time of Trauma: 18 History of Trauma/Abuse Treatment? No Abuse/Trauma Treatment: none reported Legal History Current Legal Status: none Pending Court Dates: denies Have you ever been arrested No Hx of Juvenile Legal Charges? No Hx of Adult Legal Charges? No Psychosocial History Primary Support System: , father, sibling(s), friend Strengths/Capabilities: Motivated for treatment, goal-oriented. Weaknesses: none identified Physical Limitations (Interventions): None reported Last Physical: unknown History of Seizures? No History of Blackouts? No ADL Limitations: none reported Bradford/Social/Peer Relations pt identifies that she has many supports with family and friends Meaningful Activities: sewing, painting, listening to music, hiking, spending time with her son Childhood Religious: Adventism Current Taoist Affiliation: non-affiliated Is Spirituality Important to You? yes Patient's Ethnicity: "I don't know. I am a mix." Cultural/Ethnic Issues: none reported Are There Developmental Issues? No Milestones Achieved: fine motor, gross motor Psychiatric Treatment History Psych Treatment Inpatient Treatment No Outpatient Treatment Yes Location of Treatment Dr. Diana, and now Dr. Flor. Also, [facility] for one visi Reason for Treatment Patient report: Bipolar, anxiety. Dr. Flor: PTSD, borderline P.D., ?mood disorder. Dates of Treatment Currently in outpatient with . Treated since 14 y.o. Response to Treatment Meds lose efficacy and faily, per patient and psychiatrist Current Filing Clerk: Dr. 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 Psychodynamic Issues: none reported Risk Factors: high anxiety/distress Substance Use/Abuse History Drug Use/Abuse Substance Used/Abused No History Substance Abuse Treatment Substance Abuse Treatment Inpatient Treatment No Outpatient Treatment No Sexual History Sexually Active Yes # of partners 1 Sexual Orientation Heterosexual Sexual Concerns: none reported Education History Highest Level of Education: high school/GED Highest Grade Completed: 12 Number of College Years: 0 Preferred Learning Style: visual, auditory, experiential HX of Learning Difficulties: None reported Barriers to Learning: None reported Special Communication Needs: None reported Employment History Employment Employed Vocation/Occupational Hx: works a [employer] No. of Jobs in Last 5 Years: 1 Attendance: Normal Performance: Good History Have You Been in The ? No Current Mental Status Problem List: 1. Mood disorder 2. Major depressive disorder 3. Anxiety Mental Status Orientation: Person, Place, Situation Affect: Flat, Sad Speech: WNL Neuro-vegetative: Anhedonia, Helpless, Sleep Disturbance Appearance Appearance- Dress/Hygiene: Hospital garb Behaviors Thought Process: Loose Association Thought Content: Confabulations, Delusions Memory: WNL (Denies, but inconsistencies) Insight: Poor SI/HI Risk Assessment Past Suicidal Ideation/Attempts Yes Current Suicidal Ideation/Att No Past Homicidal Ideation/Att: No Current Homicidal Ideation/Attempts No Degree of Intent: Recent thoughts, no plan Danger To: Self Gravely Disabled: Lack of Insight, Poor Judgment Risk Factors: High Anxiety/Distress Lethality Ratin - Conclusion and Recommendations for treatment - and discharge planning Summary: 26 F presented to her psychiatrist, Dr. Angélica Flor, , today who after evaluation, found her to have stronger suicidal ideation and auditory hallucinations, and sent her to the ED. 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 She had had a fight with her spouse this morning, believing that he was laughing at her, when he was not. She reports she has had escalating suicidal ideation, without plan, in the last year. She reports that "it is more seeking relief than killing." She reports non -command AH, usually believing the person near her is talking or laughing about her. She reports VH sometimes, usually either seeing shadows, or "seeing people as someone else." Diagnosed with bipolar depression and anxiety, per her report, at age 14. Dr. Flor reports: Mood D/O NOS PTSD R/O borderline P.D. She has been treating the patient for several years, and reports that many medications have been tried, some with previous treaters, with the patient, all losing efficacy after a while, including Geodon, Abilify, Latuda, Zyprexa, Invega, risperidone, Cymbalta, Lamictal. The MD reports that the patient cannot tolerate SSRI, reason unclear, and the patient does not recognize any SSRI names. The patient reports that she had to stop one med after one day, after she developed very strong suicidal thoughts. She has never been on lithium. Current psychotropic medications, per med claim, and confirmed with the patient: Carbamazapine 300 mg PO 2X/day Clonazepam 0.5 mg #30 for 30 days filled 02/05/17, Dr. Flor, per [facility] COMMUNICATIONS MEDIA PROFESSOR Aware report Previous history includes diagnosis of bipolar and anxiety, treated by Dr. Diana for many years, before he moved. She denies psychiatric hospitalization. She denies any suicide attempts. She denies any history of seizure. MSE: Alert and oriented. Calm, cooperative but tearful. She denies current suicidal ideation, but reports she had these feelings without plan earlier today , and reports they have been getting worse in the last year. Later, she changed this to state the these +SI feelings and hallucinations began when Dr. Flor increased the dosing of her carbamazapine to the current level. She denies current auditory or visual hallucinations, but had auditory hallucinations earlier today, as noted above. Visual hallucinations occur sometimes, and are described above. She endorses hopelessness and helplessness, but not worthlessness. She denies homicidal ideation, but reports that sometimes, she wants to punch people who are near her, even complete strangers. She cannot recall the last manic episode, but reports impulsive spending and Lotto gambling, even reaching the spending limit on her 's credit cards. He works only part-time, and this caused severe financial burden. She feels that she is not in her body when she feels stressed. Less frequently, she reports random derealization. Sleep is sometimes good, but then describes 5-6 hours and does not feel refreshed in the morning. she does not use sleep aids. She denies street drug use, and reports rare alcohol use. She does smoke 1/2 to 1 pack of cigarettes daily. For trauma history, please see PSHx below. PSHx: The patient lives at home with her 6 y.o. son, Jr. Kali and her spouse, Kali. She reports that her daughter in 2008 in the womb, and she carried the stillborn infant for 7 months. At the time of this , she had started [facility] IOP, but left on the first day, when she was told they wished to restart her medications, "I don't like pushy people." Her mother one week after her son was born. She works at [employer] part-time, and states that her hours have been cut back, because she has anxiety there and has had to leave work on numerous occasions. Her best friend in her sleep on . PFHx: Mother - anxiety, depression, alcohol abuse, and aunt abused benzodiazepines. Father - Bipolar, with schizophrenia, anxiety and depression in other members on that side. ROSALINE LOMBARDI SALESPERSON WOMEN'S DRESSES> 02/18/17 Social work met with pt this morning and pt presents in good spirits. Pt smiles and expressed that she feels so much better due to the medication change. "I have not felt this way since i was a child. I feel so much better. Even my son told me how much better I seem." Pt expresses that she feels ready to be discharged, but would like to be referred to a new Psychiatrist prior to discharge. pt explains that she no longer wants to return to tx with Dr. Ruelas as she does not like the way Dr. Ruelas addressed things and made her come to the hospital.
--- NOTE | 2017-02-21 10:45 | SOCIAL WORKER PROG NOTE PSYCH ---
Social Work Progress Note Progress Note Social work met with pt this morning to complete her social hx. Pt presents in good spirits. Pt smiles and expressed that she feels so much better due to the medication change. "I have not felt this way since i was a child. I feel so much better. Even my son told me how much better I seem." Pt expresses that she feels ready to be discharged, but would like to be referred to a new Psychiatrist prior to discharge. pt explains that she no longer wants to return to tx with Dr. Ruelas as she does not like the way Dr. Ruelas addressed things and made her come to the hospital.
[2017-02-21 12:29] VITALS: BP 145/77
--- NOTE | 2017-02-21 12:40 | NUR ---
PT HAS BEEN VISIBLE IN THE [place]IE[place] THROUGHOUT THE DAY. PT HAS BEEN PARTICIPATING IN GROUPS, AND HAS SOME INTERACTIONS WITH HER PEERS. PT REPORTS FEELING BETTER, AND THAT HER MEDICATION IS WORKING FOR HER. SHE HAS BEEN COOPERATIVE WITH THE RULES OF THE UNIT AND DENIES THOUGHTS OF HURTING SELF.
--- NOTE | 2017-02-21 15:21 | CP SOUTH PROGRESS NOTE PSYCH ---
Psych (Inpt) Progress Note Progress Note Include the following elements, when applicable: Involvement in the active treatment of the patient with behavioral observations of the patient and the patient's response to the treatment. Review of the ongoing treatment process in the context of the treatment plan. Indication of how multi-disciplinary staff members are carrying out the treatment plan. Plans for future interventions and recommendations for revision of the treatment plan. Liaison with other physicians/providers. Progress Note: I discussed this patient's progress to date, current mental status, treatment process in the context of the treatment plan, and discharge planning with staff/ team in the daily morning inpatient team meeting. I also met with the patient myself in individual session. OBJECTIVE: Current Medications Sig/Jerri Start time Last Medication Dose Route Stop Time Status Admin Escitalopram Oxalate 10 MG 02/23 08 DC PO Escitalopram Oxalate 10 MG 02/22 0800 AC PO Escitalopram Oxalate 5 MG DAILY 02/19 1142 DC 02/21 PO 02/21 1001 0847 Hydroxyzine HCl 50 MG Q6P PRN 02/20 1230 AC PO Ibuprofen 600 MG Q6P PRN 02/20 1100 AC PO Melatonin 3 MG AT BEDTIME PRN 02/19 1145 AC PO Nicotine 2 MG Q2P PRN 02/19 1200 AC PO Nicotine 7 MG DAILY 02/19 1153 AC TOP Vital Signs Date Time Temp Pulse Resp B/P B/P Pulse O2 O2 Flow FiO2 Mean Ox Delivery Rate 02/21 1229 73 145/77 02/21 0759 97.0 69 111/64 02/20 1953 97.8 71 149/93 02/20 1608 71 142/92 ASSESSMENT: Chart, progress notes, labs, VS and medication list were reviewed. Patient is a 26-year , female who intially presented to ED from her outpatient psychiatrist's office d/t increased SI without plan and new onset non-command auditory hallucinations. Patient reported this to be in the context of recent Tegretol increase to 300mg BID. Per collateral from outpatient psychiatrist, pt is diagnosed with Mood disorder NOS, PTSD, R/O Bordelrine personality disorder. Per pt report, she was diagnosed Bipolar disorder at 14 years old. Over the weekend, patient was started on Lexapro 5mg daily to target primary depressive symptoms. At this time, she did not exhibit symptoms of eunice or hyponia, or symptoms of psychosis. Met with patient this afternoon, who presented in good spirits. She described consistent reports as listed above as the reason she was admitted to [facility]. She denied a prior hx of suicide attempts or prior inpatient psychiatric hospitalizations. Today, mood appeared bubbly and animated (? elevated, however, was difficult to discern given unknown baseline). Affect was bright, full-range. Speech was normal in rate and tone, volume was loud at times; non-pressured. She reported having more energy since being admitted (lexapro started on 02/19/17). However, denied sleep issues, or symptoms of eunice/hypomania. Could not recall last manic/hypomanic episode. Reported feeling "much better!" Stated she feels ready to return home. Unclear if patient is minimizing symptoms which led to present hospitalization. Reported her sleep and appetite were good. Patient denied passive and active suicidal ideation, plans and intent. Denied homicidal ideation, auditory and visual hallucinations. Gave protective factors of her 5y/o son and . Stated last experiencing non-command AH on Tuesday in ED. Denied PI. There was no evidence of delusions. Thought process was linear , goal directed. Cognition was grossly intact. Will continue Lexapro at 5mg daily for now for depression/anxiety. At this time, pt is not agreeable to further med changes. Family meeting is scheduled tomorrow morning with . Will obtain information on patient's baseline and consider trial of Lamictal as indicated for mood stabilization. PLAN: 1. Continue monitoring on unit for mood, safety, suicidal ideation, AH. 2. Family meeting scheduled tomorrow. 3. Discontinue Lexapro 10mg daily tomorrow; will continue at 5mg daily for now. 4. Consider trial of Lamictal if indicated for mood stabilization following family meeting. 5. Dispo planning per primary team.
--- NOTE | 2017-02-21 15:53 | SOCIAL WORKER TX PLAN PSYCH ---
Treatment Plan - Please Document: - Evidence that there is ongoing collaboration between - the patient and the interdisciplinary team, - including the patient's active participation and - responsibility for engaging in the treatment regimen, - and that the treatment plan is individualized and - relevant to the patient's conditions. - Treatment plan should reflect documentation indicating - that all active therapeutic efforts are included. Strengths/Capabilities: Motivated for treatment, goal-oriented. Physical Limitations (Interventions): None reported Patient Identified Trmt Goals: " I need a med change" Discharge Plan: Rob [facility] and return home Problem/Goals #1 Problem #1: psychosis Goal (Short Term): patient will explore medications to help with current symptoms Goal (Commercial Photographer): patient will be able to verbalize improvement in symptoms in order to discharge. Interventions: Patient will be offered medication management with the BOXING INSTRUCTOR, groups on coping skills, symptom management, relaxation, focus group, goals group. Assistant Guest Services Manager will assess symptoms daily, hold family meeting, coordinate aftercare. 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 Current GAF: 21 Treatment Team - Responsibilities of members of the treatment team include: - Medication Management- MD or BOXING INSTRUCTOR - Medication Administration and Monitoring- Nurse - Group Therapy- Occupational Therapist - 1:1 Therapy,Disch Planning,family involvement-Assistant Guest Services Manager
--- NOTE | 2017-02-21 15:53 | SOCIAL WORKER PROG NOTE PSYCH ---
Social Work Progress Note Progress Note Rebecca talked about having gone through several medication changes over the past year. She stated she was having alot of difficulties with her symptoms because of all the changes. She has been seeing Dr. Liao for the past couple of years. She thought she heard her say something that he didn't Tuesday morning. When she saw the Dr. she told her this and she was surprised that the doctor felt that she needed to come to the hospital. She believes that this hallucination could have been from the meds she was taking. She stated that she never has experienced voices before. She is feeling since her med change here on Tuesday she is feeling much better. She states she feels more "balanced" and "engergized". Her personality as we talked seemed bubbly and personable. She appeared quite happy. She would like to leave the hospital soon to get back to things at home with her 5 year old son. She was given the option to sign a 3 day paper to terminate her voluntary status. She decided she would do that, so she would feel more at ease. It doesn't appear that she will need to be here long. I asked if we could have her in for a meeting tomorrow? She said she will arrange for him to be in at 10:15am. 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 She said her hours have been cut alot and she is in the process of filing for disability. She mentioned having issues with anxiety a few times, but denies any current panic symptoms. She said she prefers to not take medication for that and deals with it on her own by listening to music, painting, going outside ect.. She is interested in attending [facility] in the afternoon as an aftercare plan.
[2017-02-21 16:23] VITALS: BP 134/77
[2017-02-21 19:58] VITALS: BP 130/68
--- NOTE | 2017-02-21 23:05 | NUR ---
PT HAS BEEN POSITIVE SINCE HER VISIT WITH HER . SHE HAS BEEN SOCIAL AND SITS WITH PEERS IN THE MILEU. PT IS COOPERATIVE AND REMAINS STABLE, WITH LITTLE CHANGES OF MOOD THROUGHOUT THE EVENING. ON THE UNIT. PT DENIES ANY THOUGHTS OF SI AT THIS TIME.
--- NOTE | 2017-02-22 05:56 | NUR ---
PATIENT SLEPT ALL NIGHT.
[2017-02-22 08:04] VITALS: BP 139/89
--- NOTE | 2017-02-22 10:23 | SOCIAL WORKER PROG NOTE PSYCH ---
Social Work Progress Note Progress Note Rebecca's came in for a family meeting. Rebecca looked well. Continues to present with a smile and stated she feels good. Denies any auditory hallucinations. Her reported that she is looking so much better, as before she was home feeling down and isolative. He said that presentation had been for about 6 months. He didn't have any concerns about her safety and shared that she is always around family and him. I asked if this is typically her personality or if she was starting to get a little manic? He didn't seem alarmed and said that this is her. He was interested in her having another psychiatrist. I don't think Rebecca or her were pleased with the response from Dr. Flor on Tuesday when she sent her here. We discussed follow up in the IOP and how they will prescribe her medications and how they can help transition her to another outpatient provider from there. IOP intake is scheduled for 9:30am tomorrow. There were no appts. available for today. Rebecca stated that time was good and that she would get there after dropping her son off tomorrow morning. Both were pleased to hear that the team agreed with the discharge today. will return to pick her up.
--- NOTE | 2017-02-22 10:23 | NUR ---
PT IS SCHEDULED FOR D/[place] [facility] [place]. SHE REPORTS AND DEMONSTRATES IMPROVEMENT IN HER MOOD AND ABILITY TO FUNCTION. SHE DENIES ANY THOUGHTS OF SUICIDE OR SELDF HARM. SHE IS COMPLINT WITH HER MED REGIME AND AGREES TO FOLLOW UP WITH IOP. PT IS GIVEN EDUCATION ON MANAGING HER MOOD D/O AND ON PREVENTING SUICIDE
[2017-02-22] MEDS ORDERED: LEXAPRO5 M1 PO (10:29)
--- NOTE | 2017-02-22 10:46 | DISCHARGE SUMMARY REPORT-PSYCH ---
Visit Information Visit Dates/Diagnosis' Admission Date: 02/18/17 Discharge Date: 02/22/17 Reason for Admission: Suicidal ideation without plan or intent; new onset non-command auditory hallucinations. Psy Discharge Primary Diag: Unspecified mood disorder Psy Discharge Secondary Diag: Complex Bereavement; R/O Bipolar disorder; R/O Cluster B traits; Obesity; hypothyroidism and prediabetes by history. Hospital Course Significant Lab Findings: Lab Carbamazepine 6.6 ug/mL 02/18/17 1240 Urine Test NEGATIVE 02/18/17 1125 Course Complications: None. Consultations: The patient was seen for admission history and physical by business controller Dr. Garrick Jeff. Please see his note for additional information. Allergies: Coded Allergies: oxycodone (Intermediate, VOMITING 02/18/17) Hospital Course/TX Response: The patient was monitored on the unit for safety, mood, suicidal ideation, and auditory hallucinations. Once admitted to inpatient psychiatry, the patient denied further presence of auditory hallucinations. She reported having last experienced auditory hallucinations in the Emergency Department. Given that her most pressing symptoms at admission to inpatient psychiatry were depressive in nature, and she reported auditory hallucinations had resolved, low-dose Lexapro 5mg daily was started for depression/anxiety. Tegretol 300mg BID was discontinued as there was no clear indication for a mood stabilizer during hospitalization and given its risk of worsening obesity. The patient tolerated medication well and denied untoward medication effects. There were no reports of a past or recent history of manic or hypomanic episodes; during the patient's hopsitalization there was no overt evidence of mood lability or further psychotic symptoms. During the hospital course, the patient's mood and affect improved. She consistently denied auditory hallucinations. Suicidal ideation and non-command auditory hallucinations remitted. A family meeting was held with the patient, her , Kali, Franny Arora LCSW, and this science writer. The patient's treatment progress, medication regimen, psychiatric history and presenting symptoms, level of safety and discharge planning were reviewed and discussed. Kali reported during the family meeting that the patient's mood had returned to baseline. He expressed no safety concerns surrounding the patient's safety or discharge plan to follow-up with [facility]. He appeared positive that she would not be resuming treatment with former outpatient psychiatrist and preferred that she was being referred elsewhere. The patient was also in favor of discharge plan. On the date of discharge, the patient's behavior was calm and cooperative. Mood was "better." Affect was full-range, non-labile. She was alert and oriented to person, place, and time. Speech was normal in rate, tone and volume, non- pressured. Eye contact was appropriate. She had no complaints. She rated anxiety a 2/10 (10 being the worst) and depression 0/10 (10 being the worst). She denied feeling hopeless, helpless, worthless, and guilty. Patient denied passive and active suicidal ideation, plans and intent. Denied homicidal ideation, auditory and visual hallucinations. She stated and also believed she will not harm herself or others. Gave protective factors of her 5y/o son and . Stated last experiencing non-command AH on Tuesday in ED. Denied paranoid ideation. There was no evidence of delusions. Thought process was linear, goal directed. Cognition was grossly intact. She reported her sleep and appetite were good. She reported tolerating medication well and denied untoward medication effects. She reported feeling safe and ready for discharge. Discharge HBIPS - Tobacco Use Treatment Offered Post DC Medications Offered: Refused Tob Medication Tx Post DC Tobacco Treatment Plan: Rob Tobacco Tx Pgm Program Appt Date: 03/02/17 Program Appt Time: 1600 - EtOH/Drug Use D/O Treatment Offered Post DC Medications Offered: NA-No EtOH/Drug Use D/O Post DC EtOH/SubAbuse TX Plan: NA-No EtOH/Drug Use D/O Metabolic Screening - Screen if on a Neuroleptic Medication - Metabolic screening should include: - Blood Pressure, BMI, Glucose or Hgb A1c, & a - Lipid profile from within the past 365 days. Metabolic Screening ([X]) Not Applicable, patient not on a neuroleptic. OR () Patient on a neuroleptic(s) . Enter below results for Glucose or Hemoglobin A1C, and lipid panel if obtained during the last 365 days. BMI: 56.700 Blood Pressure: 139/89 Laboratory Results (If applicable): n/a Discharge Instructions General Discharge Information Discharge Medications: Discharge Medications- (Dose, route, freq, indication): HOME MEDICATION LIST START taking these NEW Home Medications: Escitalopram Oxalate Dose: ORAL, DAILY @8 AM for Qty: 14 Printed (Lexapro) 5 MG 5 Milligram depression/anxiety Refills: 0 TABLET Take 1 tab po QAM. Last Taken:02/22/17 Time:0900 STOP taking these DISCONTINUED Home Medications: Clonazepam (Clonazepam) 0.5 MG Dose: ORAL, 2 x Daily as needed as TABLET 1 Tablet needed for ANXIETY Reason Stopped: Pharmacy Substitution Carbamazepine (Tegretol) 200 Dose: ORAL, TWICE DAILY for MENTAL MG TABLET 1.5 Tablet HEALTH Reason Stopped: Per Doctor Decision Your Preferred Pharmacy [facility] [address] [place] [address] Multiple Neuroleptics: ([X]) Not Applicable OR Document below three failed attempts at monotherapy, or a plan to taper to monotherapy, or augmentation of Clozapine. () Patient's Diet: Regular. Patient's Activity: No restrictions. DC Disposition: Patient to return to home and . Recommendations: Patient was advised to please take her medications as prescribed. She was advised to follow-up with scheduled outpatient referrals. She was advised that in the event of an emergency to call 911/go to nearest emergency department. Patient verbalized understanding of all instructions. *Recommend considering a trial of Lamictal if symptoms of mood lability develop.* Referred To: Post Discharge Referrals OUTPATIENT PSYCHIATRY Service Date: 03/02/17 [address] [place] [place] [address] Notes: [facility] [address], [place] 03/02/17 4pm INTENSIVE OUTPT PSYCHIATRY Service Date: 02/23/17 [address] [place] [place] [address] Notes: Intensive Outpatient Program [facility] [address], [place] [phone] 02/23/17 9:30am Copies To: IOP; Smoking Cessation Program Copies To: IOP; Smoking Cessation Program
--- NOTE | 2017-02-22 10:51 | CP SOUTH PROGRESS NOTE PSYCH ---
Psych (Inpt) Progress Note Progress Note Include the following elements, when applicable: Involvement in the active treatment of the patient with behavioral observations of the patient and the patient's response to the treatment. Review of the ongoing treatment process in the context of the treatment plan. Indication of how multi-disciplinary staff members are carrying out the treatment plan. Plans for future interventions and recommendations for revision of the treatment plan. Liaison with other physicians/providers. Progress Note: I discussed this patient's progress to date, current mental status, treatment process in the context of the treatment plan, and discharge planning with staff/ team in the daily morning inpatient team meeting. I also met with the patient myself in individual session. OBJECTIVE: Current Medications Sig/Jerri Start time Last Medication Dose Route Stop Time Status Admin Escitalopram Oxalate 10 MG 02/23 08 DC PO Escitalopram Oxalate 10 MG 02/22 08 CAN PO Escitalopram Oxalate 5 MG 02/22 08 AC 02/22 PO 0851 Hydroxyzine HCl 50 MG Q6P PRN 02/20 1230 AC PO Ibuprofen 600 MG Q6P PRN 02/20 1100 AC PO Melatonin 3 MG AT BEDTIME PRN 02/19 1145 AC PO Nicotine 2 MG Q2P PRN 02/19 1200 AC PO Nicotine 7 MG DAILY 02/19 1153 DC TOP Vital Signs Date Time Temp Pulse Resp B/P B/P Pulse O2 O2 Flow FiO2 Mean Ox Delivery Rate 02/22 0804 98.2 67 139/89 02/21 1958 99.0 68 130/68 05/08 1623 65 134/77 05/08 1229 73 145/77 ASSESSMENT: Chart, progress notes, labs, VS and medication list were reviewed. Vital signs within normal limits. No new lab results today. Reviewed patient's progress to date with nursing staff who described the patient 's mood as stable. Per their reports, behavior is appropriate. No evidence of hypomanic or manic behavior, or symptoms of psychosis. She has topher participating appropriately in milieu activities with no behavioral events. Please see Franny Arora LCSW's note for information on family meeting. Met with patient today on the date of discharge. Behavior was calm and cooperative. Mood was "better." Affect was full-range, non-labile. Speech was normal in rate, tone and volume, non-pressured. Eye contact was appropriate. She had no complaints. She rated anxiety a 2/10 (10 being the worst) and depression 0/10 (10 being the worst). She denied feeling hopeless, helpless, worthless, and guilty. Patient denied passive and active suicidal ideation, plans and intent. Denied homicidal ideation, auditory and visual hallucinations. She stated and also believed she will not harm herself or others. Gave protective factors of her 5y/o son and . Stated last experiencing non-command AH on Tuesday in ED. Denied PI. There was no evidence of delusions. Thought process was linear, goal directed. Cognition was grossly intact. She reported her sleep and appetite were good. She reported tolerating medication well and denied untoward medication effects. She reported feeling safe and ready for discharge. PLAN: 1. Discharge today to home and . 2. Discharge precription printed, reviewed and provided to patient on discharge. 3. F/u at [facility] tomorrow, 02/23/17 at 9:30AM for intake. 4. F/u with Smoking Cessation Program on 03/02/17 at 4PM. Patient declined discharge prescription for nicotine supplement. 5. In the event of an emergency, call 911/go to nearest emergency dpeartment. Patient verbalized understanding of instructions.
== END 2017-02-22 12:00 | DRG 754 ==
LOC: ERH 10:28 → CP SOUTH 17:35 → ERHI 17:35 → CP SOUTH 23:07
PROVIDERS: Physician Assistant; ADMIT Psychiatry & Neurology Psychiatry
DX: F43.21 Adjustment disorder with depressed mood (principal); F31.9 Bipolar disorder, unspecified; E66.9 Obesity, unspecified; E03.9 Hypothyroidism, unspecified; R73.03 Prediabetes
CPT/HCPCS: 80307; 81003; 81025; G0463; G0480